=== PATIENT | male | born 1940 | race Caucasian/White ===

== ENCOUNTER 2016-12-28 11:22 | Emergency (ER) | payer MEDICARE, OTHER ==
[2016-12-28 11:49] LABS: BASOPHILS % (AUTO) 0.3 %; EOSINOPHILS # (AUTO) 0.1 10^3/uL (0.0-0.7); EOSINOPHILS % (AUTO) 1.2 %; HCT - HEMATOCRIT 47.4 % (42.0-52.0); HGB - HEMOGLOBIN 16.1 g/dL (14.0-18.0); LYMPHOCYTES # (AUTO) 2.2 10^3/uL (1.5-3.5); LYMPHOCYTES % (AUTO) 24.4 %; MEAN CORPUSCULAR HEMOGLOBIN 30.9 pg (27.0-31.0); MEAN CORPUSCULAR HGB CONC 33.9 g/dL (32.0-36.0); MEAN CORPUSCULAR VOLUME 91.1 fL (80.0-94.0); MEAN PLATELET VOLUME 9.2 fL (7.4-11.4); MONOCYTES # (AUTO) 0.7 10^3/uL (0.0-1.0); MONOCYTES % (AUTO) 7.8 %; NEUTROPHILS % (AUTO) 66.3 %; RED BLOOD COUNT 5.21 10^6/uL (4.70-6.10); RED CELL DISTRIBUTION WIDTH 13.5 % (12.0-15.0)
[2016-12-28 12:04] LABS: ALBUMIN/GLOBULIN RATIO 1.6 (1.0-2.2); BILIRUBIN,TOTAL 1.1 mg/dL (0.2-1.0); CALCIUM 9.1 mg/dL (8.5-10.3); POTASSIUM 4.3 mmol/L (3.5-5.0); TOTAL PROTEIN 7.2 g/dL (6.7-8.2)
[2016-12-28] MEDS ORDERED: NITROGLYCERIN 2% PASTE TOP STA (12:08)
[2016-12-28] MEDS ORDERED: NITROGLYCERIN 2% PASTE TOP ONE (12:24)
[2016-12-28] MEDS ORDERED: IOPAMIDOL-300 100 ML VIAL IVP ONE (13:05)
--- NOTE | 2016-12-28 13:29 | CT Preliminary Report ---
Exam: CT Chest Angio (PE) IMPRESSION: 1. Negative for pulmonary embolism. 2. No evidence of pneumonia or pleural effusion. 3. Incidental 6 mm left lower lobe pulmonary nodule. Significance could be best established using 12 month follow-up noncontrast CT chest. Most likely benign. [facility] SITE ID: [id number]
--- NOTE | 2016-12-28 13:31 | CT Report ---
EXAM: CT ANGIOGRAM CHEST EXAM DATE: 12/28/2016 01:13 PM. CLINICAL HISTORY: Pleuritic right sided chest pain. COMPARISON: None. TECHNIQUE: Routine helical imaging was performed through the chest in the pulmonary arterial phase. I V Contrast: 80 cc Isovue 300 IV. Reconstructions: Coronal 3-D MIP reconstructions.Sagittal and perez l. In accordance with CT protocol optimization, one or more of the following dose reduction techniques w ere utilized for this exam: automated exposure control, adjustment of mA and/or KV based on patient s ize, or use of iterative reconstructive technique. FINDINGS: Pulmonary Arteries: Diagnostic quality: Adequate through the segmental arteries. No evidence for acute or chronic pulmona ry emboli. Lungs/Pleura: There is a 6 mm left lower lobe nodule on series 5 image 82. No consolidative process. Negative for pneumothorax. Trachea and central airways are normal in caliber. Negative for pleural ef fusion. Mediastinum: The heart size is normal. No pericardial effusion. There are moderate coronary artery ca lcifications. Thoracic Aorta: The aorta is not yet opacified with contrast. No thoracic aortic aneurysm. No mediast inal lymphadenopathy. Upper Abdomen: Unremarkable. Other: None. IMPRESSION: 1. Negative for pulmonary embolism. 2. No evidence of pneumonia or pleural effusion. 3. Incidental 6 mm left lower lobe pulmonary nodule. Significance could be best established using 12 month follow-up noncontrast CT chest. Most likely benign. [facility] Referring Provider Line: [phone] SITE ID: [id number]
--- NOTE | 2016-12-28 13:56 | ED Physician Documentation ---
History of Present Illness - Stated complaint Stated Complaint: CHEST PX - Chief complaint Chief Complaint: Cardiac - Additonal information Additional information: pt oswoke 7 AM with 3/10 righ sided chest pain that is somewhat pleuritic in nature a little soa pain has subsided but not gone away possibly slightly worse with exertion - but he normally plays tennis every day without any soa or cp no abd pain no leg pain or swelling very fit and active no recent travel no fever cough Review of Systems Constitutional: denies: Fever, Chills Cardiac: reports: Chest pain / pressure. denies: Palpitations Respiratory: reports: Dyspnea. denies: Cough GI: denies: Abdominal Pain, Nausea, Vomiting, Diarrhea : denies: Dysuria Musculoskeletal: denies: Extremity pain, Extremity swelling Neurologic: denies: Generalized weakness, Focal weakness, Numbness Endocrine: denies: Easy bruising / bleeding Immunocompromised: denies: Immunocompromised PD PAST MEDICAL HISTORY - Past Medical History Cardiovascular: High cholesterol - Past Surgical History Past Surgical History: No - Present Medications Home Medications: Ambulatory Orders Medication Instructions Recorded Confirmed Aspirin 1 tab PO DAILY 12/28/16 12/28/16 Atorvastatin [Lipitor] 20 mg PO DAILY 12/28/16 12/28/16 Multivitamin [Multiple Vitamins] 1 tab PO DAILY 12/28/16 12/28/16 Saw Big Pool 1 tab PO DAILY 12/28/16 12/28/16 - Allergies Allergies/Adverse Reactions: Allergies Allergy/AdvReac Type Severity Reaction Status Date / Time No Known Drug Allergies Allergy Verified 12/28/16 11:30 - Social History Does the pt smoke?: No Smoking Status: Never smoker Does the pt drink ETOH?: Yes Does the pt have substance abuse?: No - Immunizations Immunizations are current?: Yes PD ED PE NORMAL - Vitals Vital signs reviewed: Yes - Neck Neck: Supple, no meningeal sign - Cardiac Cardiac: RRR - Respiratory Respiratory: No respiratory distress, Clear bilaterally - Abdomen Abdomen: Soft, Non tender - Derm Derm: Normal color - Extremities Extremities: No deformity, Normal ROM s pain, No edema - Neuro Neuro: Alert and oriented X 3, No motor deficit - Psych Psych: Normal mood Results - Vitals Vitals: Vital Signs - 24 hr 12/28/16 12/28/16 12/28/16 11:25 12:04 13:44 Temperature 36.6 C Heart Rate 58 L 59 L 58 L Respiratory 12 14 18 Rate Blood Pressure 168/71 H 134/70 H 128/68 O2 Saturation 100 100 100 12/28/16 14:59 Temperature 36.5 C Heart Rate 71 Respiratory 16 Rate Blood Pressure 122/62 O2 Saturation 100 Oxygen O2 Source Room air - EKG (time done) 1136 Rate: Francisco J (55) Rhythm: NSR [place]: Normal Intervals: Normal GA Ischemia: Normal ST segments - Labs Labs: Laboratory Tests 12/28/16 12/28/16 12/28/16 11:30 11:30 11:30 WBC 9.0 RBC 5.21 Hgb 16.1 Hct 47.4 MCV 91.1 MCH 30.9 MCHC 33.9 RDW 13.5 Plt Count 151 MPV 9.2 Neut # 6.0 Lymph # 2.2 [place] # 0.7 Eos # 0.1 Baso # 0.0 Absolute Nucleated RBC 0.00 Nucleated RBCs 0.0 Sodium 139 Potassium 4.3 Chloride 101 Carbon Dioxide 29 Anion Gap 9.0 BUN 27 H Creatinine 1.0 Estimated GFR (MDRD) 73 L Glucose 104 H Calcium 9.1 Total Bilirubin 1.1 H AST 22 ALT 22 Alkaline Phosphatase 78 Troponin I < 0.04 Total Protein 7.2 Albumin 4.4 Globulin 2.8 Albumin/Globulin Ratio 1.6 Lipase 33 12/28/16 13:51 WBC RBC Hgb Hct MCV MCH MCHC RDW Plt Count MPV Neut # Lymph # [place] # Eos # Baso # Absolute Nucleated RBC Nucleated RBCs Sodium Potassium Chloride Carbon Dioxide Anion Gap BUN Creatinine Estimated GFR (MDRD) Glucose Calcium Total Bilirubin AST ALT Alkaline Phosphatase Troponin I < 0.04 Total Protein Albumin Globulin Albumin/Globulin Ratio Lipase - Rads (name of study) CTPA Radiology: See 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, 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, 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, incidental 6 mm nodule rec 12 m fuup) PD MEDICAL DECISION MAKING - ED course ED course: pt took his own asa today gave 1/2 inch notro paste will check EKG and q2h trop - as sx started 7 AM should be able to rule in/out in ED time frame also as sx are pleuritic got CTPA Pt verbally advised of small nodule in left lung and the radiologist recommend to repeat imaging in 1 year (called pt to advise him of this ) Departure - Departure Disposition: 01 Home, Self Care Clinical Impression: Chest pain Qualifiers: Chest pain type: unspecified Qualified Code(s): R07.9 - Chest pain, unspecified Condition: Good Instructions: ED Chest Pain Atypical Unkn Cause, ED Chest Pain Pleurisy Follow-Up: Jesus Manuel Holley MD [Primary Care Provider] - Comments: The CT scan did not show a blood clot in your lungs not an aneurysm of tear of your aorta Also your EKG and two sets of blood tests were fine which rules out a heart attack I am not completely certain what did cause the pain, it could be inflammation of the lining of your lungs called pleurisy - there is no test to prove that diagnosis, mostly the testing is to rule out other life threatening problems. Given the reassuring work up in the ER, I think it is safe for you to go home and resume your usual activities tomorrow. May tale tylenol for any further pain. I would like you to follow up with your PMD for a recheck this week and if you have not had a cardiac stress test that might be a good screening test to discuss.
[2016-12-28 15:00] VITALS: BP 122/62
== END 2016-12-28 15:25 | disposition home or self-care (01) ==
LOC: ED 11:22
DX: R07.9 Chest pain, unspecified (principal); E78.00 Pure hypercholesterolemia, unspecified; Z79.82 Long term (current) use of aspirin
CPT/HCPCS: 36415; 71275; 80053; 83690; 84484; 85025; 93005; 99283; 99284; A9270; Q9967